=== PATIENT | male | born 1960 | race Caucasian/White ===

== ENCOUNTER 2025-10-27 14:01 | Inpatient (IN) | payer MEDICARE, OTHER ==
[~2025-10-27] VITALS: Ht 182.9 cm; Wt 61.7 kg
[2025-10-27] MEDS: IV NS 0.9% 1,000 ML BAG IV ONE (15:00)
[2025-10-27 15:05] LABS: PLATELET COUNT (AUTO) 258 K/uL (150-450); RED BLOOD CELL COUNT(AUTO) 3.99 MIL/uL (4.5-6.0); RED CELL DISTRIBUTION WIDTH 14.2 % (11.5-15.0); WHITE BLOOD COUNT (AUTO) 5.8 K/uL (4.3-11.0)
[2025-10-27 15:16] LABS: CALCIUM, SERUM 8.9 mg/dL (8.5-10.1); CREATININE 0.9 mg/dL (0.6-1.3); SODIUM SERUM 142 mmol/L (136-145); UREA NITROGEN, BLOOD 25 mg/dL (7-18)
[2025-10-27 15:19] LABS: INR 1.04 (0.91-1.10)
[2025-10-27] MEDS ORDERED: BISA10SU11 RC (15:29)
[2025-10-27] MEDS ORDERED: APIX2.5T PO (15:29)
[2025-10-27] MEDS ORDERED: MULT-213 PO (15:29)
[2025-10-27] MEDS ORDERED: NA P133E RC (15:29)
[2025-10-27] MEDS ORDERED: PRIM50TA27 PO (15:29)
[2025-10-27] MEDS ORDERED: LIDO1ADH82 TP (15:29)
[2025-10-27] MEDS ORDERED: PANT40TA49 PO (15:29)
[2025-10-27] MEDS ORDERED: IPRA0.2S49 IH (15:29)
[2025-10-27] MEDS ORDERED: ALBU2.5V13 IH (15:29)
[2025-10-27] MEDS ORDERED: METF-440 PO (15:29)
[2025-10-27] MEDS ORDERED: MAGN400O6 PO (15:29)
[2025-10-27] MEDS ORDERED: AMIO100T PO (15:29)
[2025-10-27] MEDS ORDERED: FERR325T24 PO (15:29)
[2025-10-27] MEDS ORDERED: ACET-73 PO (15:29)
[2025-10-27] MEDS ORDERED: SILV20CR13 TP (15:29)
[2025-10-27] MEDS ORDERED: PREG-59 PO (15:29)
[2025-10-27] MEDS ORDERED: METH750T3 PO (15:29)
[2025-10-27] MEDS ORDERED: METO25TA20 PO (15:29)
[2025-10-27] MEDS ORDERED: IBUP-1488 PO (15:29)
[2025-10-27] MEDS ORDERED: GUAI100S9 PO (15:29)
[2025-10-27] MEDS ORDERED: ASCO500T20 PO (15:29)
[2025-10-27 15:30] LABS: ALCOHOL, BLOOD < 3 mg/dL (0-10); ASPARTATE AMINOTRANSFERASE 12 U/L (15-37); SERUM AMMONIA 10 umol/L (11-32); TOTAL PROTEIN, SERUM 8.0 g/dL (6.4-8.2)
[2025-10-27] MEDS ORDERED: ONDANSETRON HCL/PF 4 MG/2 ML VIAL IVP PRN (17:30)
[2025-10-27] MEDS ORDERED: IPRATROPIUM NEB FS 0.5 MG/2.5 ML AMPUL.NEB NEB PRN (17:30)
[2025-10-27] MEDS ORDERED: ALBUTEROL FS 2.5 MG/0.5 ML VIAL.NEB NEB PRN (17:30)
[2025-10-27] MEDS ORDERED: MAGNESIUM HYDROXIDE 30 ML UDC PO PRN (17:30)
[2025-10-27] MEDS ORDERED: Z GUARD REMEDY 4 OZ OINT TP PRN (17:30)
[2025-10-27] MEDS ORDERED: IOHEXOL-300 100 ML VIAL IV ONE (17:37)
[2025-10-27] MEDS ORDERED: IV NS 0.9% 250 ML IV ONE (17:37)
[2025-10-27] MEDS ORDERED: CT SWABBABLE VALVE TRANS SET 1 EA INFUS.SET MC ONE (17:37)
[2025-10-27] MEDS: METHOCARBAMOL (750MG) 750 MG TABLET PO SCH (20:54)
[2025-10-27] MEDS: ACETAMINOPHEN 325 MG TABLET PO PRN (20:54)
[2025-10-27 21:00] VITALS: BP 158/68; TEMP 97.9; O2SAT 97
[2025-10-27] MEDS: IV 1/2NS 1000 ML 1,000 ML IV PRN (23:18)
[2025-10-28 06:39] LABS: PLATELET COUNT (AUTO) 267 K/uL (150-450); RED BLOOD CELL COUNT(AUTO) 3.90 MIL/uL (4.5-6.0); RED CELL DISTRIBUTION WIDTH 14.4 % (11.5-15.0); WHITE BLOOD COUNT (AUTO) 5.3 K/uL (4.3-11.0)
[2025-10-28 06:52] LABS: CALCIUM, SERUM 9.0 mg/dL (8.5-10.1); CREATININE 0.7 mg/dL (0.6-1.3); SODIUM SERUM 141.0 mmol/L (136-145); UREA NITROGEN, BLOOD 19.0 mg/dL (7-18)
[2025-10-28 06:56] LABS: IRON, SERUM 42.0 ug/dl (50-175)
[2025-10-28 07:09] LABS: LDL 129.0 mg/dL (0-99)
[2025-10-28 07:25] LABS: PHOSPHORUS 3.3 mg/dL (2.5-4.9)
[2025-10-28 08:00] VITALS: BP 143/61; TEMP 97.8; O2SAT 96
[2025-10-28] MEDS: ASCORBIC ACID 500 MG TABLET PO SCH (08:35)
[2025-10-28] MEDS: PREGABALIN 100 MG CAPSULE PO SCH (08:36)
[2025-10-28] MEDS: METOPROLOL TARTRATE 25 MG TABLET PO SCH (08:36)
[2025-10-28] MEDS: AMIODARONE HCL 200 MG TABLET PO SCH (08:36)
[2025-10-28] MEDS: PANTOPRAZOLE 40 MG TABLET.DR PO SCH (08:38)
[2025-10-28] MEDS: FERROUS SULFATE (325 MG) 325 MG/TAB TABLET PO SCH (08:38)
[2025-10-28] MEDS: METFORMIN 500 MG TABLET PO SCH (08:38)
[2025-10-28] MEDS: MULTIVIT W/MINERALS 1 TAB TABLET PO SCH (08:38)
[2025-10-28 16:00] VITALS: BP 121/60; TEMP 98.2; O2SAT 96
[2025-10-28] MEDS: APIXABAN 2.5 MG TABLET PO SCH (17:30)
[2025-10-28] MEDS: CLOTRIMAZOLE 1% 15 GM TUBE TP SCH (17:30)
[2025-10-28 20:00] VITALS: BP 119/65; TEMP 97.3; O2SAT 97; O2SAT 98
[2025-10-28] MEDS ORDERED: DOSING PER PHARMACY-VANCOMYCIN IV XX PRN (21:30)
[2025-10-28] MEDS ORDERED: VANCOMYCIN 1 GM /D5W 250 ML PB IV ONE (21:59)
[2025-10-28] MEDS: VANCOMYCIN 1 GM in IV D5W 250ml IV ONE (22:33)
[2025-10-29 08:00] VITALS: BP 115/59; TEMP 98.2; O2SAT 94
[2025-10-29] MEDS: VANCOMYCIN HCL 1.25 GM in IV D5W 250 ML IV SCH (10:35)
[2025-10-29 13:15] LABS: CALCIUM, SERUM 9.0 mg/dL (8.5-10.1); CREATININE 0.8 mg/dL (0.6-1.3); SODIUM SERUM 137.0 mmol/L (136-145); UREA NITROGEN, BLOOD 17.0 mg/dL (7-18)
[2025-10-29 15:37] VITALS: BP 111/59; TEMP 98.6; O2SAT 97
[2025-10-29] MEDS: BENZTROPINE MESYLATE (1 MG) 1 MG TABLET PO SCH (16:38)
[2025-10-29 20:00] VITALS: BP 132/65; TEMP 98.1; O2SAT 96
[2025-10-29 21:15] VITALS: BP 132/65; TEMP 98.1
[2025-10-30 08:00] VITALS: BP 118/59; TEMP 98.3; O2SAT 95
[2025-10-30 08:58] LABS: CALCIUM, SERUM 9.1 mg/dL (8.5-10.1); CREATININE 0.8 mg/dL (0.6-1.3); SODIUM SERUM 140.0 mmol/L (136-145); UREA NITROGEN, BLOOD 17.0 mg/dL (7-18)
[2025-10-30 09:00] VITALS: BP 118/59
[2025-10-30] MEDS ORDERED: ACET325T53 PO (12:13)
[2025-10-30] MEDS ORDERED: PANT40TA49 PO (12:13)
[2025-10-30] MEDS ORDERED: CLOT15CR35 TP (12:13)
[2025-10-30] MEDS ORDERED: MAGN400O6 PO (12:13)
[2025-10-30] MEDS ORDERED: BENZ1TAB7 PO (12:13)
[2025-10-30] MEDS ORDERED: METH750T3 PO (12:13)
[2025-10-30] MEDS ORDERED: VANC1.2526 IV (12:13)
== END 2025-10-30 16:30 | DRG 640 ==
LOC: ER 14:11 → MED 19:28
PROVIDERS: ADMIT Nurse Practitioner Family; ATTEND Nurse Practitioner Family
PROC: 02HV33Z Insertion of Infusion Device into Superior Vena Cava, Percutaneous Approach (ICD-10-PCS; principal; 2025-10-30)
DX: E86.0 Dehydration (principal); E43 Unspecified severe protein-calorie malnutrition; E88.A Wasting disease (syndrome) due to underlying condition; M86.172 Other acute osteomyelitis, left ankle and foot; I48.91 Unspecified atrial fibrillation; E11.621 Type 2 diabetes mellitus with foot ulcer; M54.12 Radiculopathy, cervical region; Z79.01 Long term (current) use of anticoagulants; F32.9 Major depressive disorder, single episode, unspecified; L97.526 Non-pressure chronic ulcer of other part of left foot with bone involvement without evidence of necrosis; Z68.1 Body mass index [BMI] 19.9 or less, adult; R62.7 Adult failure to thrive; E11.69 Type 2 diabetes mellitus with other specified complication; R25.1 Tremor, unspecified; K21.9 Gastro-esophageal reflux disease without esophagitis; M24.542 Contracture, left hand; G89.29 Other chronic pain; M54.50 Low back pain, unspecified; Z53.20 Procedure and treatment not carried out because of patient's decision for unspecified reasons; N40.0 Benign prostatic hyperplasia without lower urinary tract symptoms; R63.4 Abnormal weight loss; M66.272 Spontaneous rupture of extensor tendons, left ankle and foot; Z85.038 Personal history of other malignant neoplasm of large intestine; M20.42 Other hammer toe(s) (acquired), left foot; M20.41 Other hammer toe(s) (acquired), right foot; F41.9 Anxiety disorder, unspecified; Z79.899 Other long term (current) drug therapy; R26.2 Difficulty in walking, not elsewhere classified; M62.81 Muscle weakness (generalized)
CPT/HCPCS: 36415; 36569; 70450-TC; 71045-TC; 71260-TC; 80048-TC; 80061-TC; 80076-TC; 82140-TC; 82378; 82607-TC; 82728-TC; 83540-TC; 83735-TC; 84100-TC; 84439-TC; 84443-TC; 85025-TC; 85730-TC; 87081-TC; 97110-TC; 97530-TC; 97535-TC; A4223; G0378; G0480; J3373; J3490; J7030; J7050; J7060; Q9967